=== PATIENT | female | born 1960 | race Caucasian/White ===

== ENCOUNTER 2024-02-14 08:26 | Outpatient (CLI) | payer MEDICARE | END 2024-02-14 08:27 | disposition home or self-care (01) | LOC: CSHSLEEP 08:26 | PROVIDERS: ATTEND Internal Medicine | DX: G47.33 Obstructive sleep apnea (adult) (pediatric) (principal) | CPT/HCPCS: 95801 ==

== ENCOUNTER 2024-11-08 13:59 | Outpatient (CLI) | payer MEDICARE | END 2024-11-08 14:00 | disposition home or self-care (01) | LOC: CSHMAMMO 13:59 | PROVIDERS: ATTEND Family Medicine | DX: N63.21 Unspecified lump in the left breast, upper outer quadrant (principal) | CPT/HCPCS: 76642; 77065; G0279 ==

== ENCOUNTER → 2024-11-10 | Day surgery (SDC) | payer MEDICARE | LOC: CSHULT 11:58 | PROVIDERS: ATTEND Family Medicine | PROC: 0HBU3ZX Excision of Left Breast, Percutaneous Approach, Diagnostic (ICD-10-PCS; principal; 2024-11-10) | DX: D24.2 Benign neoplasm of left breast (principal) | CPT/HCPCS: 19083; A4648; 88305 ==